=== PATIENT | female | born 1930 | race Caucasian/White ===

== ENCOUNTER 2017-11-07 12:31 | Emergency (ER) | payer MEDICARE ==
[~2017-11-07] VITALS: Ht 160 cm; Wt 46.3 kg
[~2017-11-07 12:31] MED LIST: ASPIR 8181 MG PO; CIPRO500 MG PO; LOPRESSOR25 MG PO; LOSARTAN POTASS50 MG PO; METOPROLOL TART50 MG PO; METRONIDAZOLE500 MG PO; PANTOPRAZOLE SO40 MG PO; PLAVIX75 MG PO; XARELTO10 MG PO
[2017-11-07] MEDS ORDERED: ARTIFICIAL TEAR15 ML OP (13:23)
== END 2017-11-07 13:48 | disposition home or self-care (01) ==
LOC: FSED 12:31
DX: H11.31 Conjunctival hemorrhage, right eye (principal); F03.90 Unspecified dementia, unspecified severity, without behavioral disturbance, psychotic disturbance, mood disturbance, and anxiety
CPT/HCPCS: 99284

== ENCOUNTER 2018-01-25 18:21 | Emergency (ER) | payer MEDICARE ==
[~2018-01-25] VITALS: Ht 160 cm; Wt 46.3 kg
[~2018-01-25 18:21] MED LIST changes: +ARTIFICIAL TEAR15 ML OP
--- OUTSIDE RECORDS SUMMARY | 2018-01-25 18:23 | XMS REPORT | Continuity of Care Document ---
Author Author [facility] Organization [facility] Address [address] [place] [address] Phone Unavailable Care Team Providers Care Gyroscopic Engineering Technician Name Role Phone ELAINE MCARTHUR MD PCP Insurance Providers Guarantor Jose CarlosCristela Address [address] [place] [address] [employer] Payer [facility] Policy Number [id number] Subscriber's Name Cristela Chew Relationship 18 Self / Same As Patient Effective Date 15 Payer Medicare A & B Policy Number [id number] Subscriber's Name Cristela Chew Relationship 18 Self / Same As Patient Group Number [id number] Group Name RETIRED Effective Date 93 Advance Directives Directive Response Recorded Date/Time Does the patient have an advance directive? Yes 05/12/16 4:30am If yes, is advance directive on file with [facility]? No 11/01/15 8:05pm If not on file with [facility] will patient provide a copy? Yes 05/11/16 9:25pm Do you have a Directive to Physician? Yes 11/07/17 1:32pm Do you have a Medical Power of Diet Counselor? Yes 11/07/17 1:32pm Do you have an out of hospital Do Not Resuscitate Order? No 11/07/17 1:32pm Do you have any special needs we should be aware of? No 11/07/17 1:32pm Do you have a support person here with you today? Yes 11/07/17 1:32pm Did patient receive Notice of Privacy Practices? Yes 11/07/17 1:32pm Did patient receive patient rights and responsibilities? Yes 11/07/17 1:32pm Problems Medical Problem Onset Date Status Cardiac arrhythmia, unspecified 11/01/2015 Acute Lower GI bleed 05/12/2016 Acute Normotensive Unknown Acute Syncope 11/01/2015 Acute Medications Current Home Medications Medication Dose Units Route Directions Days Qty Instructions Start Date Clopidogrel Bisulfate (Plavix) 75 Mg Tablet 75 Mg Oral Daily 30 Tab Dextran 70/Hypromellose (Artificial Tears Eye Drops) 15 Ml Drops 15 Ml Ophthalmic Every 4 Hours as needed for Dry/Irritation 1 Bottle 11/07/17 Metoprolol Tartrate 50 Mg Tablet 50 Mg Oral Twice A Day Past Home Medications Medication Directions Ordered Status Aspirin (Aspir 81) 81 Mg Tablet.dr, 81 Mg Oral Daily Discontinued Ciprofloxacin Hcl (Cipro) 500 Mg Tablet, 500 Mg Oral Twice A Day Discontinued Clopidogrel Bisulfate (Plavix) 75 Mg Tablet, 75 Mg Oral Daily Discontinued Losartan Potassium 50 Mg Tablet, 50 Mg Oral Daily Discontinued Metoprolol Tartrate (Lopressor) 25 Mg Tab, 25 Mg Oral Twice A Day Discontinued Metronidazole 500 Mg Tablet, 500 Mg Oral Three Times A Day Discontinued Pantoprazole Sodium (Protonix) 40 Mg Tablet.dr, 40 Mg Oral Discontinued Rivaroxaban (Xarelto) 10 Mg Tablet, 15 Mg Oral Daily Discontinued Social History Social History Problem Response Recorded Date/Time Onset Date Status Hx Psychiatric Problems No 05/12/2016 4:30am Not Applicable Not Applicable Hx Eating Disorder No 11/01/2015 8:05pm Not Applicable Not Applicable Hx Substance Use Disorder No 11/01/2015 8:05pm Not Applicable Not Applicable Hx Depression No 11/01/2015 8:05pm Not Applicable Not Applicable Hx Alcohol Use No 11/01/2015 8:05pm Not Applicable Not Applicable Hx Substance Use Treatment No 11/01/2015 8:05pm Not Applicable Not Applicable Hx Physical Abuse No 11/01/2015 8:05pm Not Applicable Not Applicable Hospital Discharge Instructions No hospital discharge instruction information available. Plan of Care Discharge Date 11/07/17 1:48pm Disposition HOME, SELF-CARE Condition at Discharge Stable Instructions/Education Provided Subconjunctival Hemorrhage Forms Provided Work/School Excuse Prescriptions See Medication Section Referrals ELAINE MCARTHUR MD Address: [address] [place] [address] Additional Instructions/Education Call your risk consulting treasury director to schedule follow up for re-evaluation. Warm compresses and eye drops as discussed. Functional Status No functional status information available. Allergies, Adverse Reactions, Alerts No known allergies. Immunizations No immunization information available. Vital Signs Acute Vital Signs Vital Response Date/Time Height 5 ft 3 in 11/07/2017 12:55pm Weight 102 lb 11/07/2017 12:55pm Body Mass Index 18.1 kg/m^2 11/07/2017 12:55pm Results No relevant diagnostic test, laboratory data and/or discharge summary information available. Procedures No procedure information available. Encounters Encounter Location Arrival/Admit Date Discharge/Depart Date Attending Provider Departed Emergency Room [facility] 11/07/17 12:31pm 11/07 1:48pm JORJE ISAAC MD
[2018-01-25 20:42] VITALS: BP 146/84
== END 2018-01-25 21:02 | disposition home or self-care (01) ==
LOC: FSED 18:21
DX: H61.21 Impacted cerumen, right ear (principal)
CPT/HCPCS: 99282